=== PATIENT | female | born 2000 | race Caucasian/White ===

== ENCOUNTER 2018-02-10 07:15 | Emergency (ER) | payer SELFPAY ==
--- NOTE | 2018-02-10 07:44 | EDM.PDOC ---
ED HPI GENERAL MEDICAL PROBLEM - General Chief Complaint: ENT Problem Stated Complaint: left ear pain Time Seen by Provider: 02/10/18 07:30 Source of Information: Reports: Patient, Family (Parents), Old Records ([facility] chart/EMR) History Limitations: Reports: No Limitations - History of Present Illness INITIAL COMMENTS - FREE TEXT/NARRATIVE: The patient was brought to the emergency room via private automobile by her parents for evaluation of progressive 9/10 left-sided ear pain with symptoms starting about 3 days ago. She did take 650 mg of Tylenol at 6 AM this morning with little relief. No drainage noted by the patient to this point. She did have some progressive clear nasal drainage and nonproductive cough during the last few days, however no known history of fever, exposure to infection, etc.. No recent history of abdominal pain, heartburn, nausea, diarrhea, melena, gross hematochezia, or any food intolerance, including fatty foods, etc.. She does not have a history of recurrent ear infections in the past. Note that the patient did miss school yesterday. Onset: Gradual Onset Date: 02/06/18 Duration: Getting Worse Location: Reports: Other (Left ear pain as above). Denies: Head, Face, Neck, Chest, Abdomen, Back, Radiates to Quality: Reports: Pressure, Throbbing Severity: Severe Improves with: Reports: None Worsens with: Reports: None Context: Reports: Other (As above). Denies: Trauma Associated Symptoms: Reports: Cough. Denies: Confusion, Chest Pain, cough w sputum, Diaphoresis, Fever/Chills, Headaches, Loss of Appetite, Malaise, Nausea/ Vomiting, Rash, Shortness of Breath Treatments OPERATING ROOM RN: Reports: Acetaminophen Left Ear Pain Score (Numeric/FACES): 9 - Related Data Allergies Allergy/AdvReac Type Severity Reaction Status Date / Time ibuprofen Allergy Hives Verified 02/10/18 07:19 Home Meds: Home Meds Acetaminophen [Tylenol] 650 mg PO Q4HR PRN 02/10/18 [History] Clindamycin HCl 150 mg PO QID #40 capsule 02/10/18 [Rx] Dextromethorphan/guaiFENesin [Mucinex DM ER 600-30 MG] 1 each PO BID #20 tab.er 02/10/18 [Rx] Levonorgestrel-Ethin Estradiol [Levonor-Eth Estrad 0.1-0.02 mg] 1 tab PO DAILY 02/10/18 [History] Past Medical History HEENT History: Reports: Impaired Vision, Other (See Below). Denies: Allergic Rhinitis, Hard of Hearing, Otitis Media, Retinal Detachment Other HEENT History: Patient often noncompliant with her glasses Cardiovascular History: Reports: Other (See Below). Denies: Arrhythmia, Heart Murmur, High Cholesterol, Hypertension Other Cardiovascular History: She does not know her cholesterol status SPRING FORGER History: Reports: Other (See Below) LMP (Approximate): 3 Weeks Other OB/BYN History: Irregular menses with current BCP therapy Musculoskeletal History: Denies: Amputation, Back Pain, Chronic, Fracture, Gout , Neck Pain, Chronic, Osteoarthritis, RA, SLE Endocrine/Metabolic History: Denies: Diabetes, Type I, Diabetes, Type II, Hypothyroidism, IDDM Social & Family History - Tobacco Use Smoking Status *Q: Never Smoker Tobacco Use Within Last Twelve Months: No Used Tobacco, but Quit: No Smoking Cessation Information Provided To Patient: No Second Hand Smoke Exposure: Yes Source of Second Hand Smoke Exposure: Father smokes Second Hand Smoke Education Provided: Yes - Living Situation & Occupation Living situation: Reports: with Family (Parents and 2 siblings) Occupation: Student (12th grade) ED ROS PEDIATRIC - Review of Systems Review Of Systems: ROS reveals no pertinent complaints other than HPI. ED EXAM, GENERAL (PEDS) - Physical Exam Exam: See Below Exam Limited By: No Limitations General Appearance: WD/WN, No Apparent Distress Eyes: Bilateral: Normal Appearance (No nystagmus), EOMI (PERRLA) Ear (Abbreviated): Normal External Exam (Auricular studs bilaterally), Hearing Grossly Normal. No: Normal Canal (Mild bloody purulent drainage noted in left EAC), Normal TMs (Moderate sided TM injection with perforation site not visible secondary to drainage), Hearing Loss Nose Exam: Clear Rhinorrhea (Mild to moderate bilaterally) Mouth/Throat: Normal Inspection, Normal Gums, Normal Lips, Normal Oropharynx, Normal Teeth, Other (Tongue stud) Head: Atraumatic, Normocephalic. No: Facial Swelling, Facial Tenderness, Sinus Tenderness Neck: Normal Inspection, Supple, Non-Tender, Full Range of Motion. No: Lymphadenopathy (R), Lymphadenopathy (L), Thyromegaly, Nuchal Rigidity Respiratory/Chest: No Respiratory Distress, Lungs Clear, Normal Breath Sounds, No Accessory Muscle Use, Chest Non-Tender. No: Pleural Rub, Retractions Cardiovascular: Normal Peripheral Pulses, Regular Rate, Rhythm, No Edema, No Gallop, No JVD, No Murmur, No Rub. No: Gallop/S3, Gallop/S4, Friction Rub GI/Abdominal Exam: Normal Bowel Sounds, Soft, Non-Tender, No Organomegaly, No Distention, No Abnormal Bruit, No Mass, Other (obese). No: Guarding Rectal Exam: Deferred (Female): Deferred Back Exam: Normal Inspection, Full Range of Motion, NT Extremities: Normal Inspection, Normal Range of Motion, Non-Tender, No Pedal Edema, Normal Capillary Refill Neurological: Alert, Oriented, CN II-XII Intact, Normal Cognition, Normal Gait, No Motor/Sensory Deficits Psychiatric: Normal Affect, Normal Mood Skin Exam: Warm, Dry, Intact, Normal Color, No Rash. No: Diaphoretic, Wound/ Incision Lymphadenopathy: Bilateral: No Adenopathy Course - Vital Signs Last Recorded V/S: Last Vital Signs Temp 36.8 C 02/10/18 07:15 Pulse 107 H 02/10/18 07:15 Resp 20 02/10/18 07:15 BP 149/88 H 02/10/18 07:15 Pulse Ox 100 02/10/18 07:15 Vital Signs - 24 hr 02/10/18 07:15 Temperature [ 36.8 C Temporal] Pulse, 107 H Peripheral [ Pulse Oximetry] Respiratory 20 Rate Blood Pressure 149/88 H [Right Upper Arm] O2 Sat by Pulse 100 Oximetry - Orders/Labs/Meds Orders: Active Orders 24 hr Category Date Time Status CULTURE EAR [RM] Routine Lab 02/10/18 07:35 Ordered Obtain Past Medical Record [OM.PC] Routine Oth 02/10/18 07:35 Ordered Departure - Departure Time of Disposition: 08:10 Disposition: Home, Self-Care 01 Condition: Good Clinical Impression: Tobacco abuse counseling, Obesity (BMI 35.0-39.9 without comorbidity) Otitis media Qualifiers: Otitis media type: suppurative Chronicity: acute Laterality: left Recurrence: not specified as recurrent Spontaneous tympanic membrane rupture: with spontaneous rupture Qualified Code(s): H66.012 - Acute suppurative otitis media with spontaneous rupture of ear drum, left ear URI (upper respiratory infection) Qualifiers: URI type: unspecified URI Qualified Code(s): J06.9 - Acute upper respiratory infection, unspecified - Discharge Information Prescriptions: Clindamycin HCl 150 mg PO QID #40 capsule Dextromethorphan/guaiFENesin [Mucinex DM ER 600-30 MG] 1 each PO BID #20 tab.er Instructions: Otitis Media, Adult, [id number], Upper Respiratory Infection, Adult, [id number], Fat and Cholesterol Restricted Diet, [id number] Referrals: Cheryl Montes PA [Primary Care Provider] - Forms: ED Department Discharge, ED Return to Work/School Form Additional Instructions: 1. Followup with your regular provider in 10-14 days as directed. 2. Tylenol 650 mg by mouth every 4 hours with food as directed/needed. 3. School Excuse-See Form 4. Stop smoking DANISHA as directed with information, counselling, etc. provided to the patient 5. Continue to have regular provider watch her blood pressure closely 6. Weight loss and exercise in moderation as discussed - Problem List & Annotations (1) Otitis media SNOMED Code(s): 15536983 Code(s): H66.90 - OTITIS MEDIA, UNSPECIFIED, UNSPECIFIED EAR Status: Acute Priority: High Onset Date: ~02/06/18 Annotation/Comment:: Various therapeutic options were discussed with the patient and her parents. They do not wish to have ear drops at this time. Secondary to TM perforation aggressive antibiotic therapy to be initiated, i.e., clindamycin. They did not wish to have IM Rocephin. The patient and her parents are aware of necessity of follow- up with her regular provider secondary to TM perforation. Qualifiers: Otitis media type: suppurative Chronicity: acute Laterality: left Recurrence: not specified as recurrent Spontaneous tympanic membrane rupture: with spontaneous rupture Qualified Code(s): H66.012 - Acute suppurative otitis media with spontaneous rupture of ear drum, left ear (2) Tobacco abuse counseling SNOMED Code(s): 395934494, 371518237, 960894918 Code(s): Z71.6 - TOBACCO ABUSE COUNSELING Status: Chronic Priority: Medium Annotation/Comment:: Father is to stop all tobacco use DANISHA as directed /per provided information and consider contacting Quit LIne, etc.. They were counseled concerning the risks of secondhand tobacco smoke exposure, including otitis media, asthma, etc. in exposed individuals (3) URI (upper respiratory infection) SNOMED Code(s): 50144520 Code(s): J06.9 - ACUTE UPPER RESPIRATORY INFECTION, UNSPECIFIED Status: Acute Priority: High Onset Date: ~02/06/18 Annotation/Comment:: Probable viral bronchitis with initiation of Mucinex DM Qualifiers: URI type: unspecified URI Qualified Code(s): J06.9 - Acute upper respiratory infection, unspecified (4) Obesity (BMI 35.0-39.9 without comorbidity) SNOMED Code(s): 969482656, 442998717 Code(s): E66.9 - OBESITY, UNSPECIFIED Status: Chronic Priority: Medium Current Visit: Yes Annotation/Comment:: Weight Loss and exercise in moderation were discussed with low-fat, low-cholesterol diet provided. - Problem List Review Problem List Initiated/Reviewed/Updated: Yes - My Orders Last 24 Hours: My Active Orders 02/10/18 07:35 CULTURE EAR [RM] Routine Obtain Past Medical Record [OM.PC] Routine - Assessment/Plan Last 24 Hours: My Active Orders 02/10/18 07:35 CULTURE EAR [RM] Routine Obtain Past Medical Record [OM.PC] Routine Assessment:: As above Plan: As above. Extensive precautions were given to the patient and her parents, who are in agreement with the treatment plan. See Patient Instructions for further treatment and plan.
== END 2018-02-10 08:10 | disposition home or self-care (01) ==
LOC: LL.ED 07:15
DX: H66.012 Acute suppurative otitis media with spontaneous rupture of ear drum, left ear (principal); J06.9 Acute upper respiratory infection, unspecified; E66.9 Obesity, unspecified; Z88.6 Allergy status to analgesic agent; Z79.899 Other long term (current) drug therapy; Z68.39 Body mass index [BMI] 39.0-39.9, adult
CPT/HCPCS: 87070; 99283

== ENCOUNTER 2019-03-07 09:11 | Emergency (ER) | payer BC ==
[2019-03-07] MEDS ORDERED: Tetracaine HCl/PF 0.5% 4 ML Bottle EYELF ONE (09:30)
[2019-03-07] MEDS ORDERED: Balanced Salt Solution Ophth Irrig 30 ML Bottle EYEBOTH ONE (09:38)
--- NOTE | 2019-03-07 09:54 | EDM.PDOC ---
ED HPI GENERAL MEDICAL PROBLEM - General Chief Complaint: Eye Problems Stated Complaint: eye irritation Time Seen by Provider: 03/07/19 09:48 Source of Information: Reports: Patient History Limitations: Reports: No Limitations - History of Present Illness INITIAL COMMENTS - FREE TEXT/NARRATIVE: Patient's a 18-year-old who is seen with chief complaint of left eye irritation states that this is been going on for 2 days at this time I was exam with fluorescein and irrigated with saline strain no foreign body or corneal abrasion was seen patient was given be referred to Dr. Nomi Mathew for further evaluation Onset: Sudden Duration: Day(s): (Today's), Getting Worse Location: Reports: Other (Left eye) Quality: Reports: Ache Severity: Moderate Improves with: Reports: None Worsens with: Reports: Other (Light) Associated Symptoms: Reports: No Other Symptoms Treatments AUDIO VISUAL EQUIPMENT RENTAL CLERK: Reports: Acetaminophen, Other (see below) Other Treatments AUDIO VISUAL EQUIPMENT RENTAL CLERK: clear eyes drops - Related Data Allergies Allergy/AdvReac Type Severity Reaction Status Date / Time ibuprofen Allergy Hives Verified 03/07/19 09:14 Home Meds: Home Meds Acetaminophen [Tylenol] 650 mg PO Q4HR PRN 02/10/18 [History] hydroCHLOROthiazide [Hydrochlorothiazide] 12.5 mg PO DAILY 03/07/19 [History] Past Medical History HEENT History: Reports: Impaired Vision, Other (See Below) Other HEENT History: Patient often noncompliant with her glasses Cardiovascular History: Reports: Hypertension, Other (See Below) Other Cardiovascular History: She does not know her cholesterol status RADIOISOTOPE TECHNOLOGIST History: Reports: Other (See Below) Other RADIOISOTOPE TECHNOLOGIST History: Irregular menses with current BCP therapy Psychiatric History: Reports: Anxiety, Other (See Below) Other Psychiatric History: pt treats on her own Dermatologic History: Reports: Eczema Social & Family History - Tobacco Use Smoking Status *Q: Never Smoker Second Hand Smoke Exposure: Yes - Caffeine Use Caffeine Use: Reports: Soda, Tea Other Caffeine Use: tea or pop 3 times per week - Recreational Drug Use Recreational Drug Use: No - Living Situation & Occupation Living situation: Reports: with Family (Parents and 2 siblings) Occupation: Student (12th grade) ED ROS GENERAL - Review of Systems Review Of Systems: See Below Constitutional: Reports: No Symptoms HEENT: Reports: Eye Pain Respiratory: Reports: No Symptoms Cardiovascular: Reports: Blood Pressure Problem Endocrine: Reports: No Symptoms GI/Abdominal: Reports: No Symptoms : Reports: No Symptoms Musculoskeletal: Reports: No Symptoms Skin: Reports: No Symptoms Neurological: Reports: No Symptoms Psychiatric: Reports: No Symptoms Hematologic/Lymphatic: Reports: No Symptoms Immunologic: Reports: No Symptoms ED EXAM GENERAL W FULL EYE - Physical Exam Exam: See Below Exam Limited By: No Limitations General Appearance: Alert, WD/WN, No Apparent Distress Eye Exam: Bilateral Eye: Conjunctival Injection, EOMI, Normal Inspection, PERRL Cornea Exam: Left: Normal Appearance Ears: Normal External Exam, Normal Canal, Hearing Grossly Normal, Normal TMs Nose: Normal Inspection, Normal Mucosa, No Blood Throat/Mouth: Normal Inspection, Normal Lips, Normal Teeth, Normal Gums, Normal Oropharynx, Normal Voice, No Airway Compromise Head: Atraumatic, Normocephalic Neck: Normal Inspection, Supple, Non-Tender, Full Range of Motion Respiratory/Chest: No Respiratory Distress, Lungs Clear, Normal Breath Sounds, No Accessory Muscle Use, Chest Non-Tender Cardiovascular: Normal Peripheral Pulses, Regular Rate, Rhythm, No Edema, No Gallop, No JVD, No Murmur, No Rub GI/Abdominal: Normal Bowel Sounds, Soft, Non-Tender, No Organomegaly, No Distention, No Abnormal Bruit, No Mass (Male) Exam: Deferred (Female) Exam: Deferred Rectal (Males) Exam: Normal Exam, Normal Rectal Tone, Prostate Normal Rectal (Female) Exam: Deferred Extremities: Normal Inspection, Normal Range of Motion, Non-Tender, Normal Capillary Refill, No Pedal Edema Neurological: Alert, Oriented, CN II-XII Intact, Normal Cognition, Normal Gait, Normal Reflexes, No Motor/Sensory Deficits Psychiatric: Normal Affect, Normal Mood Skin Exam: Warm, Dry, Intact, Normal Color, No Rash Course - Vital Signs Last Recorded V/S: Last Vital Signs Temp 97.1 F 03/07/19 09:17 Pulse 90 03/07/19 09:17 Resp 16 03/07/19 09:17 BP 151/100 H 03/07/19 09:17 Pulse Ox 100 03/07/19 09:17 - Orders/Labs/Meds Orders: Active Orders 24 hr Category Date Time Status Eye Irrigation [RC] ASDIRECTED Care 03/07/19 09:37 Ordered Bacitracin/Neomycin/Polymyxin [Neosporin Ophth Oint] Med 03/07/19 12:00 Ordered 1 gm EYELF QID Medication Orders Neomycin/Polymyxin/Bacitracin (Neosporin Ophth Oint) 1 gm EYELF QID JOEL Meds: Medications Generic Name Dose Route Start Last Admin Trade Name Bernardo PRN Reason Stop Dose Admin Neomycin/Polymyxin/Bacitracin 1 gm 03/07/19 12:00 Neosporin Ophth Oint EYELF QID JOEL Discontinued Medications Generic Name Dose Route Start Last Admin Trade Name Freq PRN Reason Stop Dose Admin Balanced Salt Solution 10 ml 03/07/19 09:38 03/07/19 09:55 Eye Stream Eye Rinse EYEBOTH 03/07/19 09:39 10 ml ONETIME ONE Administration Tetracaine HCl 1 ml 03/07/19 09:30 03/07/19 09:56 Tetracaine 0.5% Steri-Unit Joseline EYELF 03/07/19 09:31 2 drop ASDIRECTED ONE Administration Departure - Departure Time of Disposition: 10:07 Disposition: Home, Self-Care 01 Condition: Fair Clinical Impression: Irritation of left eye - Discharge Information *PRESCRIPTION DRUG MONITORING PROGRAM REVIEWED*: No *COPY OF PRESCRIPTION DRUG MONITORING REPORT IN PATIENT RORY: No Forms: ED Department Discharge Care Plan Goals: Patient at this time comes in with eye irritation I examined unable to determine what happened will refer her to the eye doctor in [place] Dr. [place] - My Orders Last 24 Hours: My Active Orders 03/07/19 09:37 Eye Irrigation [RC] ASDIRECTED 03/07/19 12:00 Bacitracin/Neomycin/Polymyxin [Neosporin Ophth Oint] 1 gm EYELF QID - Assessment/Plan Last 24 Hours: My Active Orders 03/07/19 09:37 Eye Irrigation [RC] ASDIRECTED 03/07/19 12:00 Bacitracin/Neomycin/Polymyxin [Neosporin Ophth Oint] 1 gm EYELF QID
[2019-03-07] MEDS ORDERED: Bacitracin/Neomycin/Polymyxin B Oint 0.9 GM U/D Packet TOP ONE (10:04)
[2019-03-07] MEDS ORDERED: Bacitracin/Polymyxin B Ophth Oint 3.5 GM Tube EYELF ONE (10:30)
[2019-03-07] MEDS ORDERED: Bacitracin/Neomycin/Polymyxin B Ophth Oint 3.5 GM Tube EYELF SCH ×2 (10:30→12:00)
[2019-03-07] MEDS ORDERED: Bacitracin/Polymyxin B Ophth Oint 3.5 GM Tube ONE (10:34)
== END 2019-03-07 10:40 | disposition home or self-care (01) ==
LOC: LL.ED 09:11
DX: H57.89 Other specified disorders of eye and adnexa (principal); Z88.6 Allergy status to analgesic agent; Z79.899 Other long term (current) drug therapy; Z77.22 Contact with and (suspected) exposure to environmental tobacco smoke (acute) (chronic)
CPT/HCPCS: 99283; A9270-GY